=== PATIENT | female | born 1980 | race American Indian/Alaskan Native ===

== ENCOUNTER 2019-11-26 11:00 | Outpatient (CLI) | payer MEDICAID | END 2019-11-26 11:01 | disposition home or self-care (01) | LOC: SLR 11:00 | PROVIDERS: ATTEND Otolaryngology | DX: G47.33 Obstructive sleep apnea (adult) (pediatric) (principal); R40.0 Somnolence; E66.9 Obesity, unspecified; I10 Essential (primary) hypertension | CPT/HCPCS: G0399 ==

== ENCOUNTER 2019-12-03 11:00 | Outpatient (CLI) | payer MEDICAID | END 2019-12-03 11:01 | disposition home or self-care (01) | LOC: SLR 11:00 | PROVIDERS: ATTEND Otolaryngology | DX: G47.33 Obstructive sleep apnea (adult) (pediatric) (principal); R40.0 Somnolence; E66.9 Obesity, unspecified | CPT/HCPCS: 95811 ==

== ENCOUNTER 2020-01-05 17:03 | Observation (INO) | payer MEDICAID ==
[2020-01-03 12:22] LABS: Hematocrit 41.7 % (30.3-42.9); Hemoglobin 13.4 gm/dl (10.1-14.3); Mean Corpuscular HGB Conc 32 % (30-34); Mean Corpuscular Volume 83 fl (79-97); Platelet Count 316 K/mm3 (140-440); Red Blood Count 5.01 M/mm3 (3.65-5.03); Red Cell Distribution Width 14.7 % (13.2-15.2)
[2020-01-03 12:33] LABS: INR 1.08 (0.87-1.13)
[2020-01-03 12:34] LABS: Partial Thromboplastin Time 27.3 Sec. (24.2-36.6)
[2020-01-03 12:43] LABS: Alanine Aminotransferase 14 units/L (7-56); Albumin 4.4 g/dL (3.9-5); BUN/Creatinine Ratio 19; Blood Urea Nitrogen 13 mg/dL (7-17); Calcium 9.8 mg/dL (8.4-10.2); Hemolysis Index 35
--- NOTE | 2020-01-03 12:43 | Anesthesia Consultation ---
Anesthesia Consult and Med Hx - Airway Anesthetic Teeth Evaluation: Good ROM Head & Neck: Adequate Mental/Hyoid Distance: Adequate Mallampati Class: Class II Intubation Access Assessment: Probably Good - Pulmonary Exam CTA: Yes - Cardiac Exam Cardiac Exam: RRR - Pre-Operative Health Status ASA Pre-Surgery Classification: ASA3 Proposed Anesthetic Plan: General - Pulmonary Hx Asthma: Yes (Last used inhaler approx 2 years ago) Hx Sleep Apnea: Yes - Cardiovascular System Hx Hypertension: Yes - Central Nervous System Hx Psychiatric Problems: No - Other Systems Hx Cancer: No
[2020-01-05] MEDS: MAGNESIUM OXIDE 400 MG TAB PO SCH (09:35)
--- NOTE | 2020-01-05 09:51 | Anesthesia Day of Surgery ---
Anesthesia Day of Surgery - Day of Surgery Patient Examined: Yes Patient H&P Reviewed: Yes Patient is NPO: Yes
[2020-01-05] MEDS: MIDAZOLAM 2 MG/2 ML INJ IV PRN ×2 (09:55→11:12)
[~2020-01-05 17:03] MED LIST: ACETAMINOPHEN 325 MG/10.15 ML ORAL LIQD UNIT DOSE PO NR; ACETAMINOPHEN 325 MG/10.15 ML ORAL LIQD UNIT DOSE PO SCH; ALBUTEROL 2.5 MG/3 ML NEBU IH PRN; ALBUTEROL 8.5 GM INHALATION IH ONE; ALBUTEROL 8.5 GM INHALATION IH PRN; BUPIVACAINE-EPINEPHRINE/PF 0.25%-1:200,000 (30 ML) VIAL INFILTRATI ONE; BUPIVACAINE-EPINEPHRINE/PF 0.5%-1:200,000 (30 ML) VIAL INFILTRATI ONE; CELECOXIB 200 MG CAP PO NR; CELECOXIB 200 MG CAP PO SCH; ENOXAPARIN 40 MG/0.4 ML INJ SUB-Q NR; GABAPENTIN 300 MG CAP PO NR; GABAPENTIN 300 MG CAP PO SCH; GLYCOPYRROLATE 0.4 MG/2 ML INJ ONE; HYDROmorphone 1 MG/1 ML INJ ONE; KETOROLAC 30 MG/1 ML INJ ONE; LACTATED RINGERS 1,000 ML IV SCH; LIDOCAINE (1%) 10 MG/1 ML VIAL 20 ML MDV INFILTRATI ONE; LIDOCAINE (1%) 10 MG/1 ML VIAL 20 ML MDV ONE; LIDOCAINE MPF (2%) 20 MG/1 ML VIAL 5 ML ONE; METOCLOPRAMIDE 10 MG/2 ML INJ IV PRN; METOCLOPRAMIDE 10 MG/2 ML INJ ONE; MIDAZOLAM 2 MG/2 ML INJ ONE; MORPHINE 2 MG/1 ML INJ IV PRN; NEOSTIGMINE 10MG/10 ML INJ MDV ONE; ONDANSETRON 4 MG/2 ML INJ IV PRN; ONDANSETRON 4 MG/2 ML INJ ONE; PHENYLEPHRINE/NS 1,000 MCG/10 ML SYRINGE (OR USE) IV ONE; ROCURONIUM 50 MG/5 ML INJ IV ONE; SCOPOLAMINE TRANSDERMAL PATCH 72 HR TD SCH; SIMETHICONE 80 MG CHEW TAB PO PRN; SODIUM CHLORIDE 0.9% IRR 1,500 ML BOTTLE IR ONE; SODIUM CHLORIDE P/F VIAL 10 ML 10 ML ONE; ceFAZolin 1 GM VIAL ONE; ceFAZolin/Water 2 GM/20 ML 2 GM/20 ML SYRINGE IV NR; dexAMETHasone 20 MG/5 ML VIAL ONE; fentaNYL 100 MCG/2 ML INJ ONE; hydrALAZINE 20 MG/1 ML INJ IV PRN; metroNIDAZOLE/NS 500 MG/100 ML 500 MG/100 ML BAG IV NR; propofoL 200 MG/20 ML VIAL IV ONE
--- NOTE | 2020-01-05 17:50 | Operative Report ---
Operative Report Operative Report: DATE: 01/05/2020 Surgeon: Yue Alarcon MD Box Office Manager surgeon: Eleazar Gale MD Procedure: 1. laparoscopic sleeve gastrectomy 2. hiatal hernia repair Pre-op Dx: morbid obesity, hiatal hernia Post-op Dx: morbid obesity, hiatal hernia Anesthesia: GETA EBL: <10ml Specimen: gastric remnant Complication: none immediate Indication: 39 year old female with a history of morbid obesity . Pt is here for sleeve gastrectomy for weight loss to achieve healthier weight and improve or resolve his co-morbidities. she expressed understanding of the risks and benefits. PROCEDURE IN DETAIL: After consent was reviewed, patient was taken back to the operating room, where patient was placed supine on the bed with both arms out. The patient's legs were doubly strapped to the bed. Patient had a foot board in place. Patient had a body warmer placed by anesthesia. General anesthesia was induced with successful endotracheal intubation. Patient was then prepped and draped in normal sterile surgical fashion. After a time-out was called, I made a stab incision in the umbilicus and placed a Veress needle through this incision and insufflated the abdomen to 18 mmHg pressure. I then counted down a handsbreadth below the xiphoid process in the midline and slightly left lateral injected local anesthetic and made about 1 cm transverse incision. I then used a 5-mm Optiview trocar to enter into the abdomen. There was no gross injury to any intra-abdominal structures. I then placed a 30-degree scope through this port and inspected the abdomen. I then placed a 5-mm port in the right upper quadrant, and 1 epigastric area below the costovertebral angle. I then placed a 15-mm port about a handsbreadth in the right mid abdomen. After which a 5mm port was placed in left upper quadrant port along the anterior axillary line in a similar fashion. A trans-fascial stay stitch was placed with a suture passer device at two points around the 15mm trocar site so that it could be used at the end of the case to close the fascial defect without having to make the skin incision larger. A liver retractor was placed to the epigastric port to elevate the left lateral lobe and liver. The anterior gastric fat pad was excised. There was noted to be a significant hiatal hernia appreciated. The right and left malena were skeletonized dissecting the esophagus and stomach away from the hernia sac until the EG junction was resting 2 cm below the level of the diaphragm in the abdominal cavity without tension. An anterior crura-plasty was performed with two U stitches using surgidac. Starting approximately 6 cm proximal to the pylorus, using a LigaSure device the short gastrics were taken all the way to the left malena. Once the lateral portion of the stomach was mobile anesthesia passed a 40 Turkish bougie along the medial aspect to act as a stent. Using serial firings of endoscopic stapler one gold, followed by 4 blue, the lateral portion of the stomach was transected making sure to did not close to the 2 cm to the incisura. The sleeve stomach was seen to be without kink obstruction or twisting. The pressure was decreased to 10 mmHg. The staple line was inspected for approximately 5 minutes. There was no significant bleeding appreciated except for a slight loose at the most distal portion of the staple line. 2 clips were placed along the staple line area. Tisseel was then sprayed along the entirety of the staple line. The liver retractor was removed. Although the patient was tested preoperatively for coronavirus which we resulted negative, according to COVID-19 guidelines we desufflated the abdomen with a smoke evacuator device protocol. This was after the gastric remnant was grasped and pulled into the 15 mm trocar site. Once the abdomen was flat, trochars removed and the stomach was extracted via the 15 mm trocar site. The previously placed vicryl stitch was tied to approximate the edges of the fascial defect. All skin incisions were closed with 4-0 Monocryl followed by Dermabond. Patient was awoken, extubated, and taken to recovery stable condition. All counts were correct.
--- NOTE | 2020-01-05 18:06 | Post Anesthesia Evaluation ---
- Post Anesthesia Evaluation Patient Participated: Yes Airway Patent: Yes Stable Respiratory Function: Yes Nausea/Vomiting: No Temp > 96.8F: Yes Pain Manageable: Yes Adequeate Hydration: Yes Anesthesia Complications: No
[2020-01-05] MEDS: LACTATED RINGERS 1,000 ML IV SCH (20:09)
[2020-01-05] MEDS ORDERED: NIFEdipine XL 60 MG TAB PO SCH (21:00)
[2020-01-05] MEDS: HYDROmorphone 1 MG/1 ML INJ IV PRN (21:06)
[2020-01-05] MEDS: KETOROLAC 30 MG/1 ML INJ IV SCH ×2 (21:47→23:53)
[2020-01-05] MEDS: METOPROLOL TARTRATE 25 MG TAB PO SCH (21:48)
[2020-01-05] MEDS: ceFAZolin/NS 1 GM/50 ML 1 GM/50 ML BAG IV SCH (22:01)
[2020-01-05] MEDS: metroNIDAZOLE/NS 500 MG/100 ML 500 MG/100 ML BAG IV SCH (23:51)
[2020-01-06] MEDS: HYDROcodone/APAP 7.5-325MG-15ML ORAL LIQD PO PRN ×2 (02:36→14:03)
[2020-01-06] MEDS: KETOROLAC 30 MG/1 ML INJ IV SCH ×4 (04:35→13:00)
[2020-01-06 04:43] LABS: Hematocrit 37.5 % (30.3-42.9); Hemoglobin 12.2 gm/dl (10.1-14.3); Mean Corpuscular HGB Conc 32 % (30-34); Mean Corpuscular Volume 84 fl (79-97); Platelet Count 300 K/mm3 (140-440); Red Blood Count 4.48 M/mm3 (3.65-5.03); Red Cell Distribution Width 14.7 % (13.2-15.2)
[2020-01-06 05:09] LABS: Alanine Aminotransferase 17 units/L (7-56); Albumin 3.9 g/dL (3.9-5); BUN/Creatinine Ratio 10; Blood Urea Nitrogen 7 mg/dL (7-17); Calcium 9.1 mg/dL (8.4-10.2); Hemolysis Index 1
[2020-01-06] MEDS: LACTATED RINGERS 1,000 ML IV SCH (05:54)
[2020-01-06] MEDS: metroNIDAZOLE/NS 500 MG/100 ML 500 MG/100 ML BAG IV SCH ×2 (05:55→14:03)
[2020-01-06] MEDS: HYDROmorphone 1 MG/1 ML INJ IV PRN (06:03)
[2020-01-06 06:25] LABS: Basophils % (Manual) 0 % (0.0-1.8); Eosinophils % (Manual) 0 % (0.0-4.3); Total Cells Counted 100
[2020-01-06 06:26] LABS: Ovalocytes Rare; Platelet Estimate Consistent w Auto
[2020-01-06] MEDS ORDERED: ceFAZolin/NS 1 GM/50 ML 1 GM/50 ML BAG IV SCH (07:00)
[2020-01-06] MEDS: ceFAZolin/NS 1 GM/50 ML 1 GM/50 ML BAG IV SCH (07:19)
[2020-01-06] MEDS ORDERED: ENOXAPARIN 40 MG/0.4 ML INJ SUB-Q SCH (08:00)
[2020-01-06] MEDS: MAGNESIUM OXIDE 400 MG TAB PO SCH (09:00)
[2020-01-06] MEDS: METOPROLOL TARTRATE 25 MG TAB PO SCH ×2 (09:01→09:21)
--- NOTE | 2020-01-06 12:23 | Progress Note ---
Assessment and Plan POD#1 s/p lap sleeve gastrectomy with hiatal hernia repair. stable, afebrile. suboptimal O2 sat with ambulation. Will do trial ambulation a little later and observe. If saturation improves and continues to show no clinical signs of leak or bleeding will be discharged this later today. Subjective Date of service: 01/06/20 Patient Reports: Positive: tolerating liquids well (Pt complains of some abdominal soreness but it is manageable. She walked with PT and had O2 sat of 88% on room air after ambulating. She denies shortness of breath. ), nausea. Negative: vomiting Objective Vital Signs - 12hr 01/06/20 01/06/20 01/06/20 02:36 03:36 04:20 Temperature Pulse Rate Respiratory 16 16 16 Rate Blood Pressure Blood Pressure [Left] O2 Sat by Pulse 95 Oximetry 01/06/20 01/06/20 01/06/20 04:42 06:03 07:23 Temperature 98 F 98.6 F Pulse Rate 79 78 Respiratory 16 16 18 Rate Blood Pressure 123/68 Blood Pressure 121/74 [Left] O2 Sat by Pulse 94 95 Oximetry 01/06/20 11:34 Temperature 98.4 F Pulse Rate 67 Respiratory 18 Rate Blood Pressure 135/77 Blood Pressure [Left] O2 Sat by Pulse 97 Oximetry - General physical appearance well developed, well nourished, no distress, moderate pain - Respiratory normal expansion, normal respiratory effort - Abdomen soft, other (incisions c/d/i, abdomen appropriatley tender to palpation) - Labs 01/06/20 04:01 01/06/20 04:01 Diabetes panel 01/06/20 Range/Units 04:01 Sodium 138 (137-145) mmol/L Potassium 4.1 (3.6-5.0) mmol/L Chloride 102.1 (98-107) mmol/L Carbon Dioxide 23 (22-30) mmol/L BUN 7 (7-17) mg/dL Creatinine 0.7 (0.7-1.2) mg/dL Glucose 119 H (65-100) mg/dL Calcium 9.1 (8.4-10.2) mg/dL AST 28 (5-40) units/L ALT 17 (7-56) units/L Alkaline Phosphatase 79 (35-129) units/L Total Protein 7.1 D (6.3-8.2) g/dL Albumin 3.9 (3.9-5) g/dL Calcium panel 01/06/20 Range/Units 04:01 Calcium 9.1 (8.4-10.2) mg/dL Albumin 3.9 (3.9-5) g/dL Pituitary panel 01/06/20 Range/Units 04:01 Sodium 138 (137-145) mmol/L Potassium 4.1 (3.6-5.0) mmol/L Chloride 102.1 (98-107) mmol/L Carbon Dioxide 23 (22-30) mmol/L BUN 7 (7-17) mg/dL Creatinine 0.7 (0.7-1.2) mg/dL Glucose 119 H (65-100) mg/dL Calcium 9.1 (8.4-10.2) mg/dL Adrenal panel 01/06/20 Range/Units 04:01 Sodium 138 (137-145) mmol/L Potassium 4.1 (3.6-5.0) mmol/L Chloride 102.1 (98-107) mmol/L Carbon Dioxide 23 (22-30) mmol/L BUN 7 (7-17) mg/dL Creatinine 0.7 (0.7-1.2) mg/dL Glucose 119 H (65-100) mg/dL Calcium 9.1 (8.4-10.2) mg/dL Total Bilirubin 0.40 (0.1-1.2) mg/dL AST 28 (5-40) units/L ALT 17 (7-56) units/L Alkaline Phosphatase 79 (35-129) units/L Total Protein 7.1 D (6.3-8.2) g/dL Albumin 3.9 (3.9-5) g/dL
--- NOTE | 2020-01-06 12:27 | Discharge Summary ---
Providers - Providers Date of Admission: 01/05/20 17:04 Attending physician: PAM DUNBAR MD 01/05/20 12:08 Physical Therapy Evaluation and Treat [CONS] Routine Comment: Reason For Exam: post op bariatric surgery eval Primary care physician: DAMARI HINOJOSA Hospitalization Reason for admission: s/p sleeve gastrectomy Condition: Good Procedures: lap sleeve gastrectomy with hiatal hernia repair. Disposition: - TO HOME OR SELFCARE Core Measure Documentation - Palliative Care Palliative Care/ Comfort Measures: Not Applicable - Core Measures Any of the following diagnoses?: none Exam - Constitutional Vitals: Temp Pulse Resp BP Pulse Ox 98.4 F 67 18 135/77 97 01/06/20 11:34 01/06/20 11:34 01/06/20 11:34 01/06/20 11:34 01/06/20 11:34 General appearance: Present: no acute distress - Respiratory Respiratory effort: normal - Abdominal General gastrointestinal: Present: soft, other (incisions c/d/i, appropriatley tender to palpation) Plan Activity: advance as tolerated Diet: clear liquids Wound: open to air Special Instructions: no heavy lifting Follow up with: DAMARI HINOJOSA MD [Primary Care Provider] - 7 Days
[2020-01-06 16:49] VITALS: BP 140/73
== END 2020-01-06 18:00 | disposition home or self-care (01) ==
LOC: OR 17:03 → 3B 17:04 → INTOOBSV 17:04
PROVIDERS: ADMIT Surgery; ATTEND Surgery
DX: Z03.818 Encounter for observation for suspected exposure to other biological agents ruled out (principal); E66.01 Morbid (severe) obesity due to excess calories; K44.9 Diaphragmatic hernia without obstruction or gangrene; I10 Essential (primary) hypertension; J45.909 Unspecified asthma, uncomplicated; K21.9 Gastro-esophageal reflux disease without esophagitis; Z79.899 Other long term (current) drug therapy; Z68.43 Body mass index [BMI] 50.0-59.9, adult
CPT/HCPCS: 36415; 43281; 43775; 80053; 84703; 85007; 85025; 85027; 85610; 85730; 88307; 88341; 88342; 96365; 96366; 96367; 96372; 96375; 96376; 97110; 97161; C9250; G0378; J0690; J1100; J1170; J1650; J1885; J2250; J2370; J2405; J2704; J2710; J2765; J3010; J7120; U0003